=== PATIENT | male | born 1965 | race Caucasian/White ===

== ENCOUNTER 2016-08-03 03:33 | Emergency (ER) | payer OTHER ==
[~2016-08-03] VITALS: Ht 180.3 cm; Wt 73.0 kg
[2016-08-03 03:36] VITALS: BP 144/88
[2016-08-03] MEDS ORDERED: OXYcodone/APAP 5/325MG TABLET ONE (03:53)
[2016-08-03] MEDS ORDERED: OXYcodone/APAP 5/325MG TABLET PO ONE (04:00)
== END 2016-08-03 04:58 ==
LOC: ED 04:52
DX: K02.9 Dental caries, unspecified (principal); H92.02 Otalgia, left ear
CPT/HCPCS: 99283